=== PATIENT | male | born 1980 | race Caucasian/White ===

== ENCOUNTER 2018-09-21 14:29 | Emergency (ER) | payer BC, OTHER ==
[2018-09-21 14:35] VITALS: BP 179/139
[2018-09-21] MEDS ORDERED: LISINOPRIL 5 MG TABLET PO STA (14:50)
[2018-09-21] MEDS ORDERED: MELOXICAM 7.5 MG TABLET PO STA (14:52)
--- NOTE | 2018-09-21 14:52 | ED Physician Documentation ---
History of Present Illness - Stated complaint Stated Complaint: HIGH BP - Chief complaint Chief Complaint: General - History obtained from History obtained from: Patient, Family - History of Present Illness Timing: Unknown Pain level max: 5 Pain level now: 5 Improved by: nothing Worsened by: nothing - Additonal information Additional information: Patient states that he checked his blood pressure today and noted it was high. States no history of high blood pressure, but has not checked his blood pressure before. Denies chest pain, dyspnea, focal neuro deficits. no vision changes. States has not seen his PCP in several years. Review of Systems Ten Systems: 10 systems reviewed and negative Constitutional: denies: Fever, Chills Ears: denies: Ear pain Nose: denies: Rhinorrhea / runny nose, Congestion Respiratory: denies: Cough GI: denies: Nausea, Vomiting, Diarrhea Skin: denies: Rash Musculoskeletal: denies: Neck pain, Back pain Neurologic: reports: Numbness (States occasional numbness to his thumbs, ongoing for several months), Headache (states 4/10 headache, intermittent for several days, has nasal congestion and sinus pressure with this). denies: Focal weakness PD PAST MEDICAL HISTORY - Past Medical History Past Medical History: No - Present Medications Home Medications: Ambulatory Orders Medication Instructions Recorded Confirmed Lisinopril 5 mg PO DAILY #30 tablet 09/21/18 - Allergies Allergies/Adverse Reactions: Allergies Allergy/AdvReac Type Severity Reaction Status Date / Time No Known Drug Allergies Allergy Verified 09/21/18 14:35 - Living Situation Living Situation: reports: With family Living Arrangement: reports: At home - Social History Does the pt smoke?: No Does the pt drink ETOH?: Yes ETOH Use: Beer Does the pt have substance abuse?: No - Family History Family history: reports: Non contributory PD ED PE NORMAL - Vitals Vital signs reviewed: Yes - General General: Alert and oriented X 3, No acute distress, Well developed/nourished - HEENT HEENT: PERRL, EOMI, Ears normal, Moist mucous membranes, Pharynx benign - Neck Neck: Supple, no meningeal sign, No bruit - Cardiac Cardiac: RRR, No murmur, Strong equal pulses - Respiratory Respiratory: No respiratory distress, Clear bilaterally - Abdomen Abdomen: Soft, Non tender, Non distended - Derm Derm: Warm and dry - Extremities Extremities: No edema, No calf tenderness / cord - Neuro Neuro: Alert and oriented X 3 - Psych Psych: Normal mood, Normal affect Results - Vitals Vitals: Vital Signs - 24 hr 09/21/18 14:30 Temperature 36.5 C Heart Rate 75 Respiratory 20 Rate Blood Pressure 179/139 H O2 Saturation 99 - EKG (time done) 1444 Rate: Rate (enter#) (67) Rhythm: NSR [place]: Normal Intervals: Normal AR QRS: Normal, LVH Ischemia: Normal ST segments PD MEDICAL DECISION MAKING - ED course Complexity details: reviewed results, re-evaluated patient, considered differential, d/w patient, d/w family ED course: 37-year-old male with hypertension, evidence of LVH on his EKG. This is likely a long-standing issue that he has been unaware of. Given Mobic for his headache. He is well-appearing, nontoxic. Afebrile. No evidence of acute coronary syndrome, stroke or hypertensive emergency. Will start on lisinopril and follow-up closely with his doctor. His family history is significant for hypertension as well, his father started blood pressure medications at around age 40. Patient and family counseled regarding signs and symptoms for which I believe and urgent re-evaluation would be necessary. Patient with good understanding of and agreement to plan and is comfortable going home at this time This document was made in part using voice recognition software. While efforts are made to proofread this document, sound alike and grammatical errors may occur. Departure - Departure Disposition: 01 Home, Self Care Clinical Impression: Hypertension Qualifiers: Hypertension type: unspecified Qualified Code(s): I10 - Essential (primary) hypertension Condition: Good Instructions: ED Hypertension New Begin Tx Follow-Up: Chen Wyatt MD [Primary Care Provider] - (in 1-2 weeks) Prescriptions: Lisinopril 5 mg PO DAILY #30 tablet Comments: You have evidence on your EKG of long-standing high blood pressure. You need to follow-up with your doctor for further care. She will likely need to adjust the medications that we started you on today. Return for chest pain, visual changes or other worrisome symptoms. Discharge Date/Time: 09/21/18 15:19
== END 2018-09-21 15:19 | disposition home or self-care (01) ==
LOC: ED 14:29
DX: I10 Essential (primary) hypertension (principal); R51 Headache
CPT/HCPCS: 93005; 99283; A9270

== ENCOUNTER 2020-02-12 09:55 | Outpatient (CLI) | payer BC, OTHER ==
--- NOTE | 2020-02-13 10:28 | XRAY Report ---
Reason: RIGHT SHOULDER PAIN Procedure Date: 02/12/2020 Accession Number: [id number] / [id number] Procedure: WCP - Shoulder 3 View RT CPT Code: Final Report FULL RESULT: EXAM: RIGHT SHOULDER RADIOGRAPHY EXAM DATE: 02/12/2020 01:54 PM. CLINICAL HISTORY: Right shoulder pain. COMPARISON: None. TECHNIQUE: 3 views. FINDINGS: Bones: . No fracture or bone lesion. Joints: The glenohumeral and acromioclavicular joints are normal. No calcific tendinosis. Soft tissues: The visualized hemithorax is unremarkable. No soft tissue swelling. IMPRESSION: No significant degenerative changes of the right shoulder. [facility]
== END 2020-02-12 23:59 | disposition home or self-care (01) ==
LOC: DI.WCP 09:55
PROVIDERS: ATTEND Nurse Practitioner Family
DX: M25.511 Pain in right shoulder (principal)

== ENCOUNTER 2023-01-22 07:11 | Outpatient (CLI) | payer OTHER ==
[2023-01-22 15:14] LABS: ALBUMIN 4.2 g/dL (3.2-5.5); ALBUMIN/GLOBULIN RATIO 1.6 (1.0-2.2); ALKALINE PHOSPHATASE 56 IU/L (42-121); ALT ALANINE AMINOTRANSFERASE 22 IU/L (10-60); AST ASPARTATE AMINOTRANSFERASE 19 IU/L (10-42); BILIRUBIN,TOTAL 0.6 mg/dL (0.2-1.0); BUN - BLOOD UREA NITROGEN 13 mg/dL (6-20); CALCIUM 9.4 mg/dL (8.5-10.3); CARBON DIOXIDE - CO2 28 mmol/L (21-32); CHLORIDE 102 mmol/L (101-111); CHOL/HDL RATIO 4.5 (<5.0); CHOLESTEROL 187 mg/dL; CREATININE 0.7 mg/dL (0.6-1.2); GFR - MDRD 124 (>89); GLUCOSE 102 mg/dL (70-100); HDL CHOLESTEROL 42 mg/dL; LDL CHOLESTEROL,CALCULATED 111 mg/dL; LDL CHOLESTEROL,DIRECT 115 mg/dL; LDL/HDL RATIO 2.6 (<3.6); POTASSIUM 4.4 mmol/L (3.5-5.0); SODIUM 139 mmol/L (135-145); TOTAL PROTEIN 6.9 g/dL (6.7-8.2); TRIGLYCERIDES 171 mg/dL; VLDL CHOLESTEROL 34 mg/dL
[2023-01-22 15:17] LABS: CRP HIGH SENSITIVITY < 0.5 mg/L
[2023-01-22 15:21] LABS: BASOPHILS % (AUTO) 0.7 %; EOSINOPHILS # (AUTO) 0.2 10^3/uL (0.0-0.7); HCT - HEMATOCRIT 44.5 % (42.0-52.0); HGB - HEMOGLOBIN 14.7 g/dL (14.0-18.0); LYMPHOCYTES # (AUTO) 2.4 10^3/uL (1.5-3.5); LYMPHOCYTES % (AUTO) 54.8 %; MEAN CORPUSCULAR HEMOGLOBIN 30.3 pg (27.0-31.0); MEAN CORPUSCULAR VOLUME 91.8 fL (80.0-94.0); MEAN PLATELET VOLUME 11.4 fL (7.4-11.4); MONOCYTES # (AUTO) 0.4 10^3/uL (0.0-1.0); MONOCYTES % (AUTO) 8.9 %; NEUTROPHILS # (AUTO) 1.4 10^3/uL (1.5-6.6); NEUTROPHILS % (AUTO) 31.4 %; PLT - PLATELET COUNT 177 10^3/uL (130-450); RED BLOOD COUNT 4.85 10^6/uL (4.70-6.10); RED CELL DISTRIBUTION WIDTH 11.8 % (12.0-15.0); WHITE BLOOD COUNT 4.3 x10^3/uL (4.8-10.8)
[2023-01-22 15:37] LABS: THYROID STIMULATING HORMONE 0.62 uIU/mL (0.34-5.60)
[2023-01-22 15:39] LABS: FREE T3 4.34 pg/mL (2.5-3.9); FREE T4 (FREE THYROXINE) 0.82 ng/dL (0.58-1.64)
[2023-01-22 15:44] LABS: FERRITIN 77.1 ng/mL (23.9-336.2)
[2023-01-22 20:36] LABS: ESTIMATED AVERAGE GLUCOSE 105 mg/dL (70-100); HEMOGLOBIN A1c% 5.3 % (4.27-6.07)
[2023-01-23 01:08] LABS: VITAMIN D 25-HYDROXY 55.6 ng/mL (30.0-100.0)
[2023-01-30 01:08] LABS: 1,25-DIHYDROXY VITAMIN D-2 <10 pg/mL (.); 1,25-DIHYDROXY VITAMIN D-3 56 pg/mL (.); TOTAL 1,25-DIHYDROXYVITAMIN D 62 pg/mL (.)
== END 2023-01-22 07:12 | disposition home or self-care (01) ==
LOC: LAB.S 07:11
PROVIDERS: ATTEND Preventive Medicine Public Health & General Preventive Medicine
DX: R53.82 Chronic fatigue, unspecified (principal); E55.9 Vitamin D deficiency, unspecified; E27.9 Disorder of adrenal gland, unspecified; E16.2 Hypoglycemia, unspecified; D68.4 Acquired coagulation factor deficiency; T38.5X5A Adverse effect of other estrogens and progestogens, initial encounter; E78.5 Hyperlipidemia, unspecified; E78.00 Pure hypercholesterolemia, unspecified; E03.9 Hypothyroidism, unspecified; M19.029 Primary osteoarthritis, unspecified elbow; M19.92 Post-traumatic osteoarthritis, unspecified site; D51.9 Vitamin B12 deficiency anemia, unspecified; M10.9 Gout, unspecified
CPT/HCPCS: 36415; 80053; 80061; 81599; 82172; 82306; 82626; 82627; 82652; 82728; 83036; 83090; 83615; 83625; 83695; 83704; 83721; 84439; 84443; 84481; 85025; 85379; 85384; 85651; 86141